=== PATIENT | female | born 1975 | race Caucasian/White ===

== ENCOUNTER 2020-11-18 22:12 | Inpatient (IN) | payer OTHER ==
[~2020-11-18] VITALS: Ht 167.6 cm; Wt 108.4 kg
[2020-11-18 22:19] VITALS: BP 163/93
[2020-11-18] MEDS ORDERED: HYDROCHLOROTHIA25 M2 PO (22:30)
[2020-11-18] MEDS ORDERED: PROZAC20 M1 PO (22:30)
[2020-11-18] MEDS ORDERED: NEXIUM 40 MG CA40 M1 PO (22:31)
[2020-11-18 23:30] LABS: URINE BILIRUBIN NEGATIVE (Negative); URINE BLOOD NEGATIVE (Negative); URINE CLARITY CLEAR; URINE COLOR YELLOW; URINE GLUCOSE-RANDOM NEGATIVE (Negative); URINE KETONES TRACE (Negative); URINE LEUKOCYTES-REFLEX NEGATIVE (Negative); URINE NITRITE-REFLEX NEGATIVE (Negative); URINE PROTEIN NEGATIVE (Negative); URINE SPECIFIC GRAVITY 1.025 (1.005-1.030); URINE UROBILINOGEN 0.2 E.U./dl (0.2-1.0)
[2020-11-18 23:37] LABS: ABSOLUTE BASOPHILS 0.1 thou/uL (0.0-0.2); ABSOLUTE EOSINOPHILS 0.1 thou/uL (0.0-0.7); ABSOLUTE LYMPHOCYTES 1.7 thou/uL (0.8-5.3); ABSOLUTE MONOCYTES 0.7 thou/uL (0.0-1.2); ABSOLUTE NEUTROPHILS 12.8 thou/uL (1.6-8.1); BASOPHILS 0.4 %; EOSINOPHILS 0.9 %; HEMATOCRIT 42.2 % (37.0-47.0); HEMOGLOBIN 14.6 gm/dL (12.0-15.0); LYMPHOCYTES 11.2 %; MCHC 34.5 g/dL (28.0-37.0); MCV 92.6 fL (80.0-100.0); MONOCYTES 4.9 %; MPV 6.6 fl. (7.2-11.1); NUCLEATED RBCS 0 /100WBC; PLATELET COUNT* 340 thou/uL (150-400); POLYS 82.6 %; RBC 4.56 mil/uL (4.20-5.00); WBC 15.4 thou/uL (4.0-11.0)
[2020-11-18 23:41] LABS: CREATININE 1.1 mg/dL (0.6-1.3); POTASSIUM 3.1 mmol/L (3.5-5.1)
[2020-11-18 23:51] LABS: ALBUMIN 3.4 g/dL (3.4-5.0); TOTAL BILIRUBIN 0.5 mg/dL (<0.1-1.0); TOTAL PROTEIN 7.4 g/dL (6.4-8.2)
[2020-11-19 02:16] VITALS: BP 141/85
[2020-11-19 03:29] VITALS: BP 125/52; BP 125/62
[2020-11-19 08:00] VITALS: BP 113/78
[2020-11-19 19:02] VITALS: BP 121/73
[2020-11-19 20:00] VITALS: BP 133/78
[2020-11-19 23:40] VITALS: BP 117/71
[2020-11-20 04:48] LABS: HEMATOCRIT 37.5 % (37.0-47.0); MCHC 33.2 g/dL (28.0-37.0); MCV 93.5 fL (80.0-100.0); MPV 6.9 fl. (7.2-11.1); RBC 4.01 mil/uL (4.20-5.00)
[2020-11-20 04:58] VITALS: BP 112/82
[2020-11-20 05:01] LABS: CALCIUM 8.5 mg/dL (8.5-10.1); CREATININE 0.8 mg/dL (0.6-1.3); POTASSIUM 3.7 mmol/L (3.5-5.1)
[2020-11-20 05:02] LABS: HEMOGLOBIN 12.4 gm/dL (12.0-15.0)
[2020-11-20 08:00] VITALS: BP 103/60
[2020-11-20 12:37] VITALS: BP 151/81
[2020-11-20 16:22] VITALS: BP 118/67
[2020-11-20 20:58] VITALS: BP 123/69
--- NOTE | 2020-11-21 04:08 | NUR ---
PT A&OX4, VSS ON ROOM AIR, IV SALINE LOCKED, PAIN MEDS REQUESTED AND GIVEN ORDERED, PT UP AD NISHANT. PT SLEEPING WELL, WILL CONTINUE TO MONITOR.
[2020-11-21 04:21] VITALS: BP 137/70
--- NOTE | 2020-11-21 06:51 | OP ---
[facility], [place] [address] [place] [address] OPERATIVE REPORT Name: MARICRUZ PANIAGUA Room: [address] IN M.R.#: [id number] Admission: 11/20/20 Attend Phys: Betito Gross Discharge: Date of : 77 Report #: [id number] THIS REPORT FOR: cc: JUAN - No family physician/PCP FAM - No family physician/PCP ~ Betito Gross MD DATE OF SERVICE: 11/19/2020 PREOPERATIVE DIAGNOSIS: Acute appendicitis. POSTOPERATIVE DIAGNOSIS: Acute appendicitis. OPERATION: Laparoscopic appendectomy. SURGEON: Betito Gross MD ANESTHESIA: General. ESTIMATED BLOOD LOSS: Minimal. SPECIMEN: Appendix. DESCRIPTION OF PROCEDURE: After informed consent was obtained, the patient was brought to the operating room and placed supine. SCDs were placed and working, preoperative antibiotics were administered, general anesthesia was induced. The abdomen was prepped and draped in the usual sterile fashion. A 10 mm incision was made below the umbilicus. Fascia was incised and a trocar was placed. Pneumoperitoneum was established. Right upper quadrant and left lower quadrant 5 mm trocars were placed. The appendix was grasped and retracted anteriorly. I ligated the mesoappendix with a LigaSure device. There was excellent hemostasis. The base of the appendix was then ligated using a PDS Endoloop. The appendix was then cut and removed through an Endopouch. The fascia was then closed with a [id number] 0 Vicryl. Skin was closed with 4-0 Monocryl. Incisions were sealed with Steri-Strips. COMPLICATIONS: None. DISPOSITION: The patient was taken to recovery in satisfactory condition. <ELECTRONICALLY SIGNED> By: Betito Gross MD 11/21/20 0651 [id number] [id number] Gross MD /nt
[2020-11-21 08:06] VITALS: BP 120/75
[2020-11-21 08:36] VITALS: BP 120/75
--- NOTE | 2020-11-21 10:41 | NUR ---
DC NSG NOTE A/OX4.FC.GOMEZ.VSS.NO PAIN OR DISCOMFORT. DENIES SOA. ABD LAP INCISIONS X3 ARE C/D/I & APPEALS NURSE. TOLERATES PO. POSITIVE BOWEL SOUNDS. DR THACKER CALLED THIS AM, AND PT HAS A DC ORDER. PT VERBALIZED UNDERSTANDING OF DC INSTRUCTIONS. .
--- NOTE | 2020-11-21 13:42 | EKG ---
[place] [address] ELECTROCARDIOGRAM REPORT Name: SIVAMARICRUZLEISA WANG Room: [address] IN ..#: [id number] Admission: 11/20/20 Attend Phys: Betito Puente Discharge: 11/21/20 Date of : 77 Date of Service: 11/19/20 0048 Report #: [id number] THIS REPORT FOR: //name// [facility] ED Test Date: 2020-11-19 Test Time: 00:48:49 Pat Name: MARICRUZ PANIAGUA Department: Room: [facility] Gender: F Production Intern: ASHLI : 1975 Requested By: Amaris Paniagua Order Number: [id number] MD: Andrea Burnett Measurements Intervals [place] Rate: 125 P: -10 [place]: 81 QRS: 9 QRSD: 84 T: 1 QT: 309 QTc: 446 Interpretive Statements Sinus tachycardia Anterior scar cannot be excluded Borderline repolarization abnormality No previous ECG available for comparison Electronically Signed On 11-21-2020 13:42:27 QUILL FIXER by Andrea Burnett [email or web address] <ELECTRONICALLY SIGNED> By: Adnrea Burnett MD, [facility] 11/21/20 1342 0048 0048 Andrea Burnett MD, [facility] /EPI
== END 2020-11-21 11:20 | disposition home or self-care (01) | DRG 343 ==
LOC: M.ERS 22:12 → M.2W 11-19 01:00 → M.TBA-ER 11-19 01:00 → M.2W 11-19 02:36
PROVIDERS: Family Medicine; Personal Emergency Response Attendant; ADMIT Surgery; ATTEND Surgery
PROC: 0DTJ4ZZ Resection of Appendix, Percutaneous Endoscopic Approach (ICD-10-PCS; principal; 2020-11-20)
DX: K35.80 Unspecified acute appendicitis (principal); I10 Essential (primary) hypertension; Z20.822 Contact with and (suspected) exposure to COVID-19; Z79.899 Other long term (current) drug therapy; Z88.0 Allergy status to penicillin; Z88.1 Allergy status to other antibiotic agents; Z98.891 History of uterine scar from previous surgery; Z72.89 Other problems related to lifestyle